=== PATIENT | female | born 1990 | race Two or more races ===

== ENCOUNTER 2017-06-05 18:26 | Emergency (ER) | payer SELFPAY, MEDICAID | END 2017-06-06 01:00 | disposition left against medical advice (07) | LOC: FTE 18:26 → E/R 06-06 01:00 | DX: Z53.21 Procedure and treatment not carried out due to patient leaving prior to being seen by health care provider (principal) ==

== ENCOUNTER 2017-06-13 12:22 | Emergency (ER) | payer MEDICAID ==
[2017-06-13] MEDS: ACETAMINOPHEN 500 MG TAB PO (15:32)
[2017-06-13 15:40] LABS: ADD MAN DIFF? NO
[2017-06-13 15:46] LABS: BASOPHIL # 0.1 10^3/ul (0.0-0.1); BASOPHILS % 0.5 % (0.0-2.0); EOSINOPHILS % 0.4 % (0.0-7.0); LYMPHOCYTES # 2.7 10^3/ul (0.8-2.9); LYMPHOCYTES % 29.4 % (15.0-51.0); MEAN CORPUSCULAR HEMOGLOBIN 31.5 pg (29.0-33.0); MEAN CORPUSCULAR HGB CONC 33.3 g/dl (32.0-37.0); MEAN CORPUSCULAR VOLUME 94.4 fl (82.0-101.0); MEAN PLATELET VOLUME 9.6 fl (7.4-10.4); MONOCYTE # 0.6 10^3/ul (0.3-0.9); MONOCYTES % 6.5 % (0.0-11.0); NEUTROPHIL # 5.7 10^3/ul (1.6-7.5); NEUTROPHILS % 62.9 % (39.0-77.0); PLATELET COUNT 347 10^3/UL (140-415); RED BLOOD COUNT 4.45 10^6/ul (4.20-5.40)
[2017-06-13 15:46] LABS: WHITE BLOOD COUNT 9.1 10^3/ul (4.8-10.8)
[2017-06-13 15:48] LABS: ADD UMIC YES; UR ASCORBIC ACID NEGATIVE (NEGATIVE); UR BILIRUBIN (Dip) NEGATIVE (NEGATIVE); UR BLOOD (Dip) NEGATIVE (NEGATIVE); UR CLARITY CLOUDY (CLEAR); UR COLOR YELLOW (YELLOW); UR GLUCOSE (Dip) NEGATIVE (NEGATIVE); UR KETONES (Dip) 1+ mg/dL (NEGATIVE); UR LEUKOCYTE ESTERASE (Dip) 1+ Leu/ul (NEGATIVE); UR MUCUS MODERATE /HPF (NONE SEEN); UR NITRITE (Dip) NEGATIVE (NEGATIVE); UR RBC 4 /HPF (0-5); UR SPECIFIC GRAVITY (Dip) 1.012 (1.003-1.030); UR SQUAMOUS EPITHELIAL CELL FEW /HPF (FEW); UR TOTAL PROTEIN (Dip) NEGATIVE (NEGATIVE); UR UROBILINOGEN (Dip) NEGATIVE (NEGATIVE); UR WBC 7 /HPF (0-5)
[2017-06-13] MEDS: CEPHALEXIN 500 MG CAP PO (17:18)
== END 2017-06-13 17:32 | disposition home or self-care (01) ==
LOC: FTE 12:22
DX: O23.11 Infections of bladder in pregnancy, first trimester (principal); O34.81 Maternal care for other abnormalities of pelvic organs, first trimester; R10.2 Pelvic and perineal pain; Z3A.01 Less than 8 weeks gestation of pregnancy
CPT/HCPCS: 36415; 76801; 81001; 84702; 85025; 86900; 86901; 99284-25

== ENCOUNTER 2017-06-14 13:25 | Emergency (ER) | payer MEDICAID ==
[2017-06-14 14:38] LABS: ADD MAN DIFF? NO
[2017-06-14 14:40] LABS: WHITE BLOOD COUNT 8.7 10^3/ul (4.8-10.8)
[2017-06-14 14:40] LABS: BASOPHIL # 0.1 10^3/ul (0.0-0.1); BASOPHILS % 0.7 % (0.0-2.0); EOSINOPHILS # 0.1 10^3/ul (0.0-0.5); EOSINOPHILS % 1.1 % (0.0-7.0); HEMATOCRIT 42.9 % (37.0-47.0); HEMOGLOBIN 14.7 g/dl (12.0-16.0); LYMPHOCYTES # 1.8 10^3/ul (0.8-2.9); LYMPHOCYTES % 21.1 % (15.0-51.0); MEAN CORPUSCULAR HEMOGLOBIN 32.3 pg (29.0-33.0); MEAN CORPUSCULAR HGB CONC 34.3 g/dl (32.0-37.0); MEAN CORPUSCULAR VOLUME 94.3 fl (82.0-101.0); MEAN PLATELET VOLUME 9.7 fl (7.4-10.4); MONOCYTE # 0.7 10^3/ul (0.3-0.9); MONOCYTES % 7.7 % (0.0-11.0); NEUTROPHIL # 6.1 10^3/ul (1.6-7.5); NEUTROPHILS % 69.2 % (39.0-77.0); PLATELET COUNT 350 10^3/UL (140-415); RED BLOOD COUNT 4.55 10^6/ul (4.20-5.40); RED CELL DISTRIBUTION WIDTH 12.2 % (11.5-14.5)
[2017-06-14 14:49] LABS: ADD UMIC YES; UR ASCORBIC ACID NEGATIVE (NEGATIVE); UR BACTERIA FEW /HPF (NONE SEEN); UR BILIRUBIN (Dip) NEGATIVE (NEGATIVE); UR BLOOD (Dip) 3+ mg/dL (NEGATIVE); UR CLARITY CLOUDY (CLEAR); UR COLOR YELLOW (YELLOW); UR GLUCOSE (Dip) 2+ mg/dL (NEGATIVE); UR KETONES (Dip) NEGATIVE (NEGATIVE); UR LEUKOCYTE ESTERASE (Dip) TRACE Leu/ul (NEGATIVE); UR NITRITE (Dip) NEGATIVE (NEGATIVE); UR RBC 1 /HPF (0-5); UR SPECIFIC GRAVITY (Dip) 1.013 (1.003-1.030); UR SQUAMOUS EPITHELIAL CELL FEW /HPF (FEW); UR TOTAL PROTEIN (Dip) NEGATIVE (NEGATIVE); UR UROBILINOGEN (Dip) NEGATIVE (NEGATIVE); UR WBC 5 /HPF (0-5)
== END 2017-06-14 15:33 | disposition home or self-care (01) ==
LOC: FTE 13:25
DX: O20.9 Hemorrhage in early pregnancy, unspecified (principal); R10.2 Pelvic and perineal pain; Z3A.01 Less than 8 weeks gestation of pregnancy
CPT/HCPCS: 36415; 76801; 81001; 84702; 85025; 99284-25

== ENCOUNTER 2017-06-16 09:45 | Emergency (ER) | payer MEDICAID ==
[2017-06-16 12:34] LABS: ADD MAN DIFF? NO
[2017-06-16 12:35] LABS: WHITE BLOOD COUNT 10.5 10^3/ul (4.8-10.8)
[2017-06-16 12:35] LABS: BASOPHILS % 0.4 % (0.0-2.0); EOSINOPHILS # 0.1 10^3/ul (0.0-0.5); EOSINOPHILS % 0.7 % (0.0-7.0); HEMATOCRIT 45.3 % (37.0-47.0); HEMOGLOBIN 14.9 g/dl (12.0-16.0); LYMPHOCYTES # 2.3 10^3/ul (0.8-2.9); LYMPHOCYTES % 21.4 % (15.0-51.0); MEAN CORPUSCULAR HEMOGLOBIN 31.2 pg (29.0-33.0); MEAN CORPUSCULAR HGB CONC 32.9 g/dl (32.0-37.0); MEAN PLATELET VOLUME 9.5 fl (7.4-10.4); MONOCYTE # 0.5 10^3/ul (0.3-0.9); MONOCYTES % 4.8 % (0.0-11.0); NEUTROPHIL # 7.6 10^3/ul (1.6-7.5); NEUTROPHILS % 72.3 % (39.0-77.0); PLATELET COUNT 363 10^3/UL (140-415); RED BLOOD COUNT 4.77 10^6/ul (4.20-5.40); RED CELL DISTRIBUTION WIDTH 11.9 % (11.5-14.5)
[2017-06-16] MEDS: ACETAMINOPHEN 500 MG TAB PO (12:44)
[2017-06-16 12:58] LABS: ADD UMIC YES; UR ASCORBIC ACID NEGATIVE (NEGATIVE); UR BACTERIA FEW /HPF (NONE SEEN); UR BILIRUBIN (Dip) NEGATIVE (NEGATIVE); UR BLOOD (Dip) 3+ mg/dL (NEGATIVE); UR CLARITY CLOUDY (CLEAR); UR COLOR RED (YELLOW); UR GLUCOSE (Dip) NEGATIVE (NEGATIVE); UR KETONES (Dip) NEGATIVE (NEGATIVE); UR LEUKOCYTE ESTERASE (Dip) NEGATIVE Leu/ul (NEGATIVE); UR MUCUS FEW /HPF (NONE SEEN); UR NITRITE (Dip) NEGATIVE (NEGATIVE); UR RBC > 182 /HPF (0-5); UR SPECIFIC GRAVITY (Dip) 1.014 (1.003-1.030); UR SQUAMOUS EPITHELIAL CELL FEW /HPF (FEW); UR TOTAL PROTEIN (Dip) 2+ mg/dl (NEGATIVE); UR UROBILINOGEN (Dip) NEGATIVE (NEGATIVE); UR WBC 106 /HPF (0-5)
== END 2017-06-16 15:09 | disposition home or self-care (01) ==
LOC: FTE 09:45
DX: O20.9 Hemorrhage in early pregnancy, unspecified (principal); R10.2 Pelvic and perineal pain; Z3A.01 Less than 8 weeks gestation of pregnancy
CPT/HCPCS: 76801; 76817; 81001; 84702; 85025; 87086; 99284-25

== ENCOUNTER 2017-11-12 07:29 | Emergency (ER) | payer SELFPAY, MEDICAID ==
[2017-11-12 08:13] LABS: ADD MAN DIFF? NO
[2017-11-12 08:14] LABS: WHITE BLOOD COUNT 9.1 10^3/ul (4.8-10.8)
[2017-11-12 08:14] LABS: BASOPHILS % 0.4 % (0.0-2.0); EOSINOPHILS # 0.1 10^3/ul (0.0-0.5); EOSINOPHILS % 0.9 % (0.0-7.0); HEMATOCRIT 40.1 % (37.0-47.0); HEMOGLOBIN 13.4 g/dl (12.0-16.0); LYMPHOCYTES % 22.3 % (15.0-51.0); MEAN CORPUSCULAR HEMOGLOBIN 31.3 pg (29.0-33.0); MEAN CORPUSCULAR HGB CONC 33.4 g/dl (32.0-37.0); MEAN CORPUSCULAR VOLUME 93.7 fl (82.0-101.0); MEAN PLATELET VOLUME 9.5 fl (7.4-10.4); MONOCYTE # 0.6 10^3/ul (0.3-0.9); MONOCYTES % 6.2 % (0.0-11.0); NEUTROPHIL # 6.4 10^3/ul (1.6-7.5); NEUTROPHILS % 69.9 % (39.0-77.0); PLATELET COUNT 325 10^3/UL (140-415); RED BLOOD COUNT 4.28 10^6/ul (4.20-5.40); RED CELL DISTRIBUTION WIDTH 12.4 % (11.5-14.5)
[2017-11-12 08:35] LABS: ADD UMIC NO; UR ASCORBIC ACID NEGATIVE (NEGATIVE); UR BILIRUBIN (Dip) NEGATIVE (NEGATIVE); UR BLOOD (Dip) NEGATIVE (NEGATIVE); UR CLARITY CLEAR (CLEAR); UR COLOR YELLOW (YELLOW); UR GLUCOSE (Dip) NEGATIVE (NEGATIVE); UR KETONES (Dip) TRACE mg/dL (NEGATIVE); UR LEUKOCYTE ESTERASE (Dip) NEGATIVE Leu/ul (NEGATIVE); UR NITRITE (Dip) NEGATIVE (NEGATIVE); UR SPECIFIC GRAVITY (Dip) 1.008 (1.003-1.030); UR TOTAL PROTEIN (Dip) NEGATIVE (NEGATIVE); UR UROBILINOGEN (Dip) NEGATIVE (NEGATIVE)
== END 2017-11-12 09:46 | disposition home or self-care (01) ==
LOC: FTE 07:29
DX: O26.891 Other specified pregnancy related conditions, first trimester (principal); R10.2 Pelvic and perineal pain; Z3A.08 8 weeks gestation of pregnancy
CPT/HCPCS: 36415; 76801; 81003; 84702; 85025; 86900; 86901; 99284-25

== ENCOUNTER 2017-12-19 03:04 | Emergency (ER) | payer SELFPAY | END 2017-12-19 07:11 | disposition left against medical advice (07) | LOC: FTE 03:04 | DX: Z53.21 Procedure and treatment not carried out due to patient leaving prior to being seen by health care provider (principal) ==

== ENCOUNTER 2018-03-28 10:40 | Outpatient (CLI) | payer OTHER ==
[2018-03-28 11:50] LABS: ADD UMIC NO; UR ASCORBIC ACID NEGATIVE (NEGATIVE); UR BILIRUBIN (Dip) NEGATIVE (NEGATIVE); UR BLOOD (Dip) NEGATIVE (NEGATIVE); UR CLARITY SLIGHTLY CLOUDY (CLEAR); UR COLOR YELLOW (YELLOW); UR GLUCOSE (Dip) 3+ mg/dL (NEGATIVE); UR KETONES (Dip) NEGATIVE (NEGATIVE); UR LEUKOCYTE ESTERASE (Dip) NEGATIVE Leu/ul (NEGATIVE); UR MUCUS FEW /HPF (NONE SEEN); UR NITRITE (Dip) NEGATIVE (NEGATIVE); UR RBC 1 /HPF (0-5); UR SQUAMOUS EPITHELIAL CELL FEW /HPF (FEW); UR TOTAL PROTEIN (Dip) NEGATIVE (NEGATIVE); UR UROBILINOGEN (Dip) NEGATIVE (NEGATIVE); UR WBC 2 /HPF (0-5)
== END 2018-03-28 13:45 | disposition home or self-care (01) ==
LOC: OBT 10:40 → L-D 10:40 → OBT 13:45
DX: O26.892 Other specified pregnancy related conditions, second trimester (principal); Z3A.27 27 weeks gestation of pregnancy; R10.30 Lower abdominal pain, unspecified
CPT/HCPCS: 76818; 81001; 81003; 82962; 87086

== ENCOUNTER 2018-04-22 12:47 | Inpatient (IN) | payer OTHER ==
[2018-04-22 15:17] LABS: ADD MAN DIFF? NO
[2018-04-22 15:24] LABS: WHITE BLOOD COUNT 9.5 10^3/ul (4.8-10.8)
[2018-04-22 15:24] LABS: BASOPHILS % 0.4 % (0.0-2.0); EOSINOPHILS # 0.1 10^3/ul (0.0-0.5); EOSINOPHILS % 0.7 % (0.0-7.0); HEMATOCRIT 39.8 % (37.0-47.0); LYMPHOCYTES # 1.6 10^3/ul (0.8-2.9); LYMPHOCYTES % 16.9 % (15.0-51.0); MEAN CORPUSCULAR HGB CONC 32.7 g/dl (32.0-37.0); MEAN PLATELET VOLUME 9.9 fl (7.4-10.4); MONOCYTE # 0.9 10^3/ul (0.3-0.9); MONOCYTES % 9.6 % (0.0-11.0); NEUTROPHIL # 6.8 10^3/ul (1.6-7.5); NEUTROPHILS % 71.7 % (39.0-77.0); PLATELET COUNT 267 10^3/UL (140-415); RED BLOOD COUNT 4.19 10^6/ul (4.20-5.40); RED CELL DISTRIBUTION WIDTH 12.6 % (11.5-14.5)
[2018-04-22 16:07] LABS: ADD UMIC NO; UR ASCORBIC ACID NEGATIVE (NEGATIVE); UR BILIRUBIN (Dip) NEGATIVE (NEGATIVE); UR BLOOD (Dip) NEGATIVE (NEGATIVE); UR CLARITY CLEAR (CLEAR); UR COLOR STRAW (YELLOW); UR GLUCOSE (Dip) 1+ mg/dL (NEGATIVE); UR KETONES (Dip) NEGATIVE (NEGATIVE); UR LEUKOCYTE ESTERASE (Dip) NEGATIVE Leu/ul (NEGATIVE); UR NITRITE (Dip) NEGATIVE (NEGATIVE); UR SPECIFIC GRAVITY (Dip) 1.008 (1.003-1.030); UR TOTAL PROTEIN (Dip) NEGATIVE (NEGATIVE); UR UROBILINOGEN (Dip) NEGATIVE (NEGATIVE)
[2018-04-22] MEDS ORDERED: CEFAZOLIN 2 GM/50 ML (PMX) 50 ML IVPB (18:01)
[2018-04-22] MEDS: CEFAZOLIN 2 GM/50 ML (PMX) 50 ML IVPB (18:12)
[2018-04-22] MEDS: LACTATED RINGER'S 1,000 ML IV ×2 (18:12→23:06)
[2018-04-22] MEDS: ACETAMINOPHEN 325 MG TAB PO (21:31)
[2018-04-23] MEDS: CEFAZOLIN 2 GM/50 ML (PMX) 50 ML IVPB ×2 (02:03→10:40)
[2018-04-23] MEDS: LACTATED RINGER'S 1,000 ML IV (07:55)
[2018-04-23] MEDS: PRENATAL VITAMIN PO (10:40)
[2018-04-23] MEDS: DOCUSATE SODIUM 100 MG CAP PO (10:40)
== END 2018-04-23 17:50 | disposition home or self-care (01) | DRG 833 ==
LOC: OBT 12:47 → L-D 12:47 → OBT 15:00 → L-D 15:00
DX: O23.43 Unspecified infection of urinary tract in pregnancy, third trimester (principal); Z3A.36 36 weeks gestation of pregnancy
CPT/HCPCS: 76817; 76818; 81003; 85025; 87086

== ENCOUNTER 2018-05-27 12:11 | Outpatient (CLI) | payer OTHER | END 2018-05-27 14:26 | disposition home or self-care (01) | LOC: OBT 12:11 → L-D 12:12 → OBT 14:26 | DX: O62.9 Abnormality of forces of labor, unspecified (principal); Z3A.37 37 weeks gestation of pregnancy | CPT/HCPCS: 76818; 82962 ==

== ENCOUNTER 2018-05-31 20:32 | Outpatient (CLI) | payer OTHER ==
[2018-05-31 21:42] LABS: ADD UMIC NO; UR ASCORBIC ACID NEGATIVE (NEGATIVE); UR BILIRUBIN (Dip) NEGATIVE (NEGATIVE); UR BLOOD (Dip) NEGATIVE (NEGATIVE); UR CLARITY CLEAR (CLEAR); UR COLOR STRAW (YELLOW); UR GLUCOSE (Dip) 3+ mg/dL (NEGATIVE); UR KETONES (Dip) NEGATIVE (NEGATIVE); UR LEUKOCYTE ESTERASE (Dip) NEGATIVE Leu/ul (NEGATIVE); UR NITRITE (Dip) NEGATIVE (NEGATIVE); UR SPECIFIC GRAVITY (Dip) 1.006 (1.003-1.030); UR TOTAL PROTEIN (Dip) NEGATIVE (NEGATIVE); UR UROBILINOGEN (Dip) NEGATIVE (NEGATIVE)
[2018-06-01] MEDS: LACTATED RINGER'S 1,000 ML IV (05:59)
[2018-06-01] MEDS: DEXTROSE 5%-LR 1,000 ML IV (07:04)
== END 2018-06-01 12:25 | disposition home or self-care (01) ==
LOC: OBT 20:32 → L-D 20:33
DX: O62.9 Abnormality of forces of labor, unspecified (principal); O32.1XX0 Maternal care for breech presentation, not applicable or unspecified; O24.414 Gestational diabetes mellitus in pregnancy, insulin controlled; Z3A.37 37 weeks gestation of pregnancy
CPT/HCPCS: 36415; 76818; 81003; 82962; 87086

== ENCOUNTER 2018-06-03 14:18 | Inpatient (IN) | payer OTHER ==
[2018-06-03] MEDS: LACTATED RINGER'S 1,000 ML IV ×2 (16:15→21:26)
[2018-06-03] MEDS ORDERED: GLUCAGON 1 MG INJ IM (18:00)
[2018-06-03] MEDS ORDERED: DEXTROSE 50% 50 ML SYRINGE IV ×2 (18:00)
[2018-06-03] MEDS ORDERED: GLUCOSE GEL 15 GRAM TUBE BUCCAL (18:00)
[2018-06-03] MEDS ORDERED: GLUCOSE GEL 15 GRAM TUBE PO ×2 (18:00)
[2018-06-03] MEDS: NPH, HUMAN INSULIN ISOPHANE 3ML VIAL SC (21:24)
[2018-06-04] MEDS: LACTATED RINGER'S 1,000 ML IV ×2 (05:16→06:42)
[2018-06-04] MEDS: INSULIN ASPART [NOVOLOG] 3 ML PEN SC (09:01)
[2018-06-04] MEDS: NPH, HUMAN INSULIN ISOPHANE 3ML VIAL SC (09:04)
[2018-06-04] MEDS: PRENATAL VITAMIN PO (09:08)
[2018-06-04] MEDS: ACETAMINOPHEN 325 MG TAB PO (09:08)
== END 2018-06-04 15:30 | disposition home or self-care (01) | DRG 833 ==
LOC: OBT 14:18 → L-D 14:18 → OBT 17:35 → L-D 17:35
PROVIDERS: Obstetrics & Gynecology
DX: O60.03 Preterm labor without delivery, third trimester (principal); Z3A.37 37 weeks gestation of pregnancy
CPT/HCPCS: 36415; 82962; 96360

== ENCOUNTER 2018-06-08 13:29 | Inpatient (IN) | payer OTHER ==
[2018-06-08] MEDS: LACTATED RINGER'S 1,000 ML IV ×3 (15:20→20:23)
[2018-06-08] MEDS ORDERED: GLUCOSE GEL 15 GRAM TUBE BUCCAL (18:00)
[2018-06-08] MEDS ORDERED: GLUCAGON 1 MG INJ IM (18:00)
[2018-06-08] MEDS ORDERED: GLUCOSE GEL 15 GRAM TUBE PO ×2 (18:00)
[2018-06-08] MEDS ORDERED: DEXTROSE 50% 50 ML SYRINGE IV ×2 (18:00)
[2018-06-08] MEDS ORDERED: OXYTOCIN 30 UNITS/LR 500 ML IV ×2 (19:00)
[2018-06-08] MEDS ORDERED: METHYLERGONOVINE 0.2 MG INJ IM (19:00)
[2018-06-08] MEDS ORDERED: LIDOCAINE 1% (MPF) 30 ML INJ INJ (19:00)
[2018-06-08] MEDS ORDERED: MISOPROSTOL 200 MCG TAB PR (19:00)
[2018-06-08] MEDS ORDERED: BUTORPHANOL 2 MG INJ IV (19:00)
[2018-06-08] MEDS ORDERED: CARBOPROST 250 MCG INJ IM (19:00)
[2018-06-08 19:35] LABS: ADD MAN DIFF? NO
[2018-06-08] MEDS ORDERED: ACCU-CHEK XX ×3 (19:35)
[2018-06-08] MEDS: ACCU-CHEK XX ×2 (19:35→21:00)
[2018-06-08 19:37] LABS: BASOPHIL # 0.1 10^3/ul (0.0-0.1); BASOPHILS % 0.4 % (0.0-2.0); EOSINOPHILS % 0.4 % (0.0-7.0); HEMATOCRIT 38.3 % (37.0-47.0); HEMOGLOBIN 12.4 g/dl (12.0-16.0); LYMPHOCYTES # 2.4 10^3/ul (0.8-2.9); LYMPHOCYTES % 21.8 % (15.0-51.0); MEAN CORPUSCULAR HEMOGLOBIN 29.7 pg (29.0-33.0); MEAN CORPUSCULAR HGB CONC 32.4 g/dl (32.0-37.0); MEAN CORPUSCULAR VOLUME 91.6 fl (82.0-101.0); MEAN PLATELET VOLUME 11.2 fl (7.4-10.4); MONOCYTE # 0.8 10^3/ul (0.3-0.9); MONOCYTES % 7.4 % (0.0-11.0); NEUTROPHIL # 7.8 10^3/ul (1.6-7.5); NEUTROPHILS % 69.6 % (39.0-77.0); PLATELET COUNT 234 10^3/UL (140-415); RED BLOOD COUNT 4.18 10^6/ul (4.20-5.40); RED CELL DISTRIBUTION WIDTH 13.2 % (11.5-14.5)
[2018-06-08 19:37] LABS: WHITE BLOOD COUNT 11.2 10^3/ul (4.8-10.8)
[2018-06-08 19:56] LABS: ALANINE AMINOTRANSFERASE 20 IU/L (13-69); ALBUMIN 3.3 g/dl (3.3-4.9); ALKALINE PHOSPHATASE 168 IU/L (42-121); ANION GAP 13 (5-13); ASPARTATE AMINO TRANSFERASE 21 IU/L (15-46); BILIRUBIN,INDIRECT 0.3 mg/dl (0-1.1); BILIRUBIN,TOTAL 0.3 mg/dl (0.2-1.3); BLOOD UREA NITROGEN 4 mg/dl (7-20); CALCIUM 9.1 mg/dl (8.4-10.2); CARBON DIOXIDE 21 mmol/L (21-31); CHLORIDE 106 mmol/L (97-110); CREATININE 0.47 mg/dl (0.44-1.00); Estimated GFR > 60 mL/min (>60); GLUCOSE 77 mg/dl (70-220); POTASSIUM 3.5 mmol/L (3.5-5.1); SODIUM 140 mmol/L (135-144); TOTAL PROTEIN 6.6 g/dl (6.1-8.1)
[2018-06-08 20:07] LABS: INR 0.91; PROTIME 12.4 Sec (11.9-14.9)
[2018-06-08 20:08] LABS: PARTIAL THROMBOPLASTIN TIME 26.1 Sec (23.0-35.0)
[2018-06-08] MEDS: INSULIN ASPART [NOVOLOG] 3 ML PEN SC (20:22)
[2018-06-08] MEDS ORDERED: ONDANSETRON 4 MG INJ (20:31)
[2018-06-08] MEDS ORDERED: CITRIC ACID/NA CITRATE 30 ML CUP (20:32)
[2018-06-08 20:40] LABS: HEPATITIS B SURFACE ANTIGEN NEGATIVE (NEGATIVE)
[2018-06-08] MEDS: CITRIC ACID/NA CITRATE 30 ML CUP PO (21:30)
[2018-06-08] MEDS: ONDANSETRON 4 MG INJ IV (21:32)
[2018-06-08] MEDS: DEXTROSE 5%-LR 1,000 ML IV (21:55)
[2018-06-08] MEDS: CEFAZOLIN 2 GM/50 ML (PMX) 50 ML IVPB (22:06)
[2018-06-08] MEDS ORDERED: PHENYLephrine (100 MCG/ML) 10ML SYG (22:11)
[2018-06-08] MEDS ORDERED: OXYTOCIN 10 UNIT INJ (22:11)
[2018-06-08] MEDS ORDERED: morphine SULFATE/PF (10 MG/10 ML) INJ (22:11)
[2018-06-08] MEDS ORDERED: HYDROmorphONE 1 MG/5 ML IV SYRINGE IV ×2 (22:30)
[2018-06-08] MEDS ORDERED: DIPHENHYDRAMINE 50 MG INJ IV ×2 (22:30)
[2018-06-08] MEDS ORDERED: OXYCODONE/ACETAMINOPHEN (5/325) TAB PO (22:30)
[2018-06-08] MEDS ORDERED: ONDANSETRON 4 MG INJ IV ×2 (22:30)
[2018-06-08] MEDS ORDERED: NALOXONE (0.4 MG/ML) INJ IV (22:30)
[2018-06-08] MEDS ORDERED: ACETAMINOPHEN 500 MG TAB PO (22:30)
[2018-06-08] MEDS ORDERED: HYDROmorphONE 0.5 MG/0.5 ML SYG IV ×2 (22:30)
[2018-06-08] MEDS ORDERED: HYDROCODONE/APAP (5/325) TAB PO (22:30)
[2018-06-08] MEDS ORDERED: FENTAnyl 50 MCG/ML VIAL IV ×2 (22:30)
[2018-06-08] MEDS ORDERED: EPHEDrine SULFATE 50 MG/5 ML SYG IV (22:30)
[2018-06-08] MEDS ORDERED: morphine 2 MG INJ IV ×2 (22:30)
[2018-06-08] MEDS ORDERED: MEPERIDINE 25 MG INJ IV (22:30)
[2018-06-08] MEDS ORDERED: NALBUPHINE HCL (10 MG/1 ML) INJ IV (22:30)
[2018-06-08] MEDS ORDERED: METOCLOPRAMIDE 10 MG INJ (22:41)
[2018-06-08] MEDS ORDERED: KETOROLAC 30 MG INJ (22:41)
[2018-06-08] MEDS ORDERED: DEXAMETHASONE 4 MG/ML 1 ML INJ (22:41)
[2018-06-08] MEDS ORDERED: MEPERIDINE 100 MG INJ (22:53)
[2018-06-08] MEDS: KETOROLAC 60 MG INJ IM (23:17)
[2018-06-08] MEDS: OXYTOCIN 30 UNITS/LR 500 ML IV (23:21)
[2018-06-08] MEDS: NPH, HUMAN INSULIN ISOPHANE 3ML VIAL SC (23:36)
[2018-06-09] MEDS: AZITHROMYCIN 500MG/NS (PMX) 250 ML IVPB (00:37)
[2018-06-09] MEDS ORDERED: LANOLIN HPA 1 PKT TOP (02:30)
[2018-06-09] MEDS ORDERED: METHYLERGONOVINE 0.2 MG INJ IM (02:30)
[2018-06-09] MEDS ORDERED: OXYCODONE/ACETAMINOPHEN (5/325) TAB PO (02:30)
[2018-06-09] MEDS ORDERED: CARBOPROST 250 MCG INJ IM (02:30)
[2018-06-09] MEDS ORDERED: NA PHOSPHATE/BIPHOS 133 ML ENEMA PR (02:30)
[2018-06-09] MEDS ORDERED: MISOPROSTOL 200 MCG TAB PR (02:30)
[2018-06-09] MEDS ORDERED: OXYTOCIN 30 UNITS/LR 500 ML IV (02:30)
[2018-06-09] MEDS ORDERED: DEXTROSE 50% 50 ML SYRINGE IV ×2 (03:00)
[2018-06-09] MEDS ORDERED: GLUCAGON 1 MG INJ IM (03:00)
[2018-06-09] MEDS ORDERED: GLUCOSE GEL 15 GRAM TUBE PO ×2 (03:00)
[2018-06-09] MEDS ORDERED: GLUCOSE GEL 15 GRAM TUBE BUCCAL (03:00)
[2018-06-09] MEDS: LACTATED RINGER'S 1,000 ML IV (03:46)
[2018-06-09] MEDS: CEFAZOLIN 2 GM/50 ML (PMX) 50 ML IVPB ×3 (05:28→21:02)
[2018-06-09] MEDS ORDERED: NPH, HUMAN INSULIN ISOPHANE 3ML VIAL SC (07:05)
[2018-06-09 08:08] LABS: ADD MAN DIFF? NO
[2018-06-09 08:11] LABS: WHITE BLOOD COUNT 15.9 10^3/ul (4.8-10.8)
[2018-06-09 08:11] LABS: BASOPHILS % 0.1 % (0.0-2.0); LYMPHOCYTES % 6.1 % (15.0-51.0); MEAN CORPUSCULAR HEMOGLOBIN 30.1 pg (29.0-33.0); MEAN CORPUSCULAR HGB CONC 32.4 g/dl (32.0-37.0); MEAN CORPUSCULAR VOLUME 92.7 fl (82.0-101.0); MEAN PLATELET VOLUME 11.3 fl (7.4-10.4); MONOCYTE # 0.8 10^3/ul (0.3-0.9); MONOCYTES % 4.9 % (0.0-11.0); NEUTROPHILS % 88.3 % (39.0-77.0); PLATELET COUNT 233 10^3/UL (140-415); RED BLOOD COUNT 3.99 10^6/ul (4.20-5.40)
[2018-06-09] MEDS: ACCU-CHEK XX ×5 (08:45→21:02)
[2018-06-09] MEDS: PRENATAL VITAMIN PO (08:51)
[2018-06-09] MEDS: SENNA/DOCUSATE NA (8.6MG/50MG) TAB PO ×2 (08:51→21:00)
[2018-06-09] MEDS: metFORMIN 500 MG TAB PO ×2 (08:52→17:50)
[2018-06-09] MEDS: CLINDAMYCIN 300 MG CAP PO ×3 (12:03→23:42)
[2018-06-09] MEDS: BISACODYL 10 MG SUPP PR (13:40)
[2018-06-09] MEDS: KETOROLAC 30 MG INJ IV (14:21)
[2018-06-09 15:13] LABS: RAPID PLASMA REAGIN NONREACTIVE (NR)
[2018-06-09] MEDS ORDERED: morphine 2 MG INJ IV ×2 (18:30)
[2018-06-10] MEDS ORDERED: IBUPROFEN 800 MG TAB (05:04)
[2018-06-10] MEDS: HYDROCODONE/APAP (5/325) TAB PO (05:44)
[2018-06-10] MEDS: CLINDAMYCIN 300 MG CAP PO ×2 (05:44→11:48)
[2018-06-10 06:27] LABS: ADD MAN DIFF? NO
[2018-06-10 06:30] LABS: BASOPHIL # 0.1 10^3/ul (0.0-0.1); BASOPHILS % 0.5 % (0.0-2.0); EOSINOPHILS # 0.1 10^3/ul (0.0-0.5); EOSINOPHILS % 0.6 % (0.0-7.0); HEMATOCRIT 34.8 % (37.0-47.0); HEMOGLOBIN 11.2 g/dl (12.0-16.0); LYMPHOCYTES # 2.8 10^3/ul (0.8-2.9); LYMPHOCYTES % 25.8 % (15.0-51.0); MEAN CORPUSCULAR HEMOGLOBIN 29.9 pg (29.0-33.0); MEAN CORPUSCULAR HGB CONC 32.2 g/dl (32.0-37.0); MEAN CORPUSCULAR VOLUME 92.8 fl (82.0-101.0); MEAN PLATELET VOLUME 11.1 fl (7.4-10.4); MONOCYTE # 0.9 10^3/ul (0.3-0.9); MONOCYTES % 8.1 % (0.0-11.0); NEUTROPHIL # 7.1 10^3/ul (1.6-7.5); NEUTROPHILS % 64.6 % (39.0-77.0); PLATELET COUNT 210 10^3/UL (140-415); RED BLOOD COUNT 3.75 10^6/ul (4.20-5.40); RED CELL DISTRIBUTION WIDTH 13.4 % (11.5-14.5)
[2018-06-10] MEDS: ACCU-CHEK XX ×4 (08:08→20:52)
[2018-06-10] MEDS: PRENATAL VITAMIN PO (08:55)
[2018-06-10] MEDS: metFORMIN 500 MG TAB PO ×2 (08:56→18:02)
[2018-06-10] MEDS: SENNA/DOCUSATE NA (8.6MG/50MG) TAB PO (09:00)
[2018-06-10] MEDS: IBUPROFEN 800 MG TAB PO ×2 (12:26→22:05)
[2018-06-10] MEDS: ACETAMINOPHEN 325 MG TAB PO ×3 (15:02→21:29)
[2018-06-10] MEDS: LOPERAMIDE 2 MG CAP PO ×2 (16:38→22:05)
[2018-06-11] MEDS: IBUPROFEN 800 MG TAB PO (05:48)
[2018-06-11] MEDS: metFORMIN 500 MG TAB PO (08:50)
[2018-06-11] MEDS: PRENATAL VITAMIN PO (08:51)
[2018-06-11] MEDS: MEASLES,MUMPS,RUBELLA VACCINE INJ SC* (09:00)
[2018-06-11] MEDS: DIPHTH/TET/ACEL PERTUSS (ADULT) 0.5 ML VIAL IM* (09:00)
[2018-06-11] MEDS: ACETAMINOPHEN 325 MG TAB PO (11:36)
[2018-06-11] MEDS ORDERED: IBUPROFEN 800 MG TAB PO (23:00)
== END 2018-06-11 14:50 | disposition home or self-care (01) | DRG 788 ==
LOC: OBT 13:29 → L-D 13:29 → PP1 06-09 02:06 → OBT 16:50 → L-D 16:50
PROC: 10D00Z1 Extraction of Products of Conception, Low, Open Approach (ICD-10-PCS; principal; 2018-06-08 21:30)
DX: O32.1XX0 Maternal care for breech presentation, not applicable or unspecified (principal); O24.429 Gestational diabetes mellitus in childbirth, unspecified control; Z3A.38 38 weeks gestation of pregnancy; Z37.0 Single live birth
CPT/HCPCS: 76818; 80053; 82962; 85025; 85610; 85730; 86592; 86850; 86900; 86901; 87075; 87340; 88307; 99464

== ENCOUNTER 2018-10-20 13:49 | Emergency (ER) | payer OTHER ==
[2018-10-20] MEDS: KETOROLAC 30 MG INJ IM (16:13)
== END 2018-10-20 16:44 | disposition home or self-care (01) ==
LOC: FTE 16:44
DX: M79.644 Pain in right finger(s) (principal); E11.9 Type 2 diabetes mellitus without complications; Z79.84 Long term (current) use of oral hypoglycemic drugs
CPT/HCPCS: 73130; 73130-RT; 81025; 96372; 99284-25

== ENCOUNTER 2018-11-29 02:39 | Emergency (ER) | payer OTHER | END 2018-11-29 06:26 | disposition home or self-care (01) | LOC: FTE 02:39 | DX: S90.111A Contusion of right great toe without damage to nail, initial encounter (principal); W20.8XXA Other cause of strike by thrown, projected or falling object, initial encounter; Y92.89 Other specified places as the place of occurrence of the external cause | CPT/HCPCS: 99283-25; L3260 ==